=== PATIENT | male | born 1990 | race Caucasian/White ===

== ENCOUNTER 2021-05-14 20:09 | Emergency (ER) | payer OTHER ==
[~2021-05-14] VITALS: Ht 180.3 cm; Wt 96.4 kg
[2021-05-14 22:37] VITALS: BP 136/86; PULSE 86; TEMP 98.7
== END 2021-05-14 23:37 | disposition home or self-care (01) ==
LOC: COL.ER 20:09
DX: S91.311A Laceration without foreign body, right foot, initial encounter (principal); Z23 Encounter for immunization; W29.0XXA Contact with powered kitchen appliance, initial encounter